=== PATIENT | male | born 1965 | race Caucasian/White ===

== ENCOUNTER 2017-01-21 07:43 | Day surgery (SDC) | payer BC ==
[~2017-01-21 07:43] MED LIST: ALPRAZolam 0.25 MG TAB PO PRN; ASPIRIN 325 MG TAB PO STA; NITROGLYCERIN SL TABS 0.4 MG TAB SUBLINGUAL PRN; SODIUM CHLORIDE 0.9% 1,000 ML in EMPTY BAG 1 BAG IV ONE
[2017-01-21] MEDS ORDERED: SODIUM CHLORIDE 0.9% 1,000 ML IV ONE (08:07)
[2017-01-21] MEDS ORDERED: VERAPAMIL 2.5 MG/ML 2 ML AMP ONE (09:19)
[2017-01-21] MEDS ORDERED: LIDOCAINE 2% INJ 20 MG/ML (20 ML MDV) ONE (09:20)
[2017-01-21] MEDS ORDERED: fentaNYL (PF) 50 MCG/ML 2 ML AMP ONE (09:20)
[2017-01-21] MEDS ORDERED: MIDAZOLAM 2 MG/2 ML VIAL ONE (09:20)
[2017-01-21] MEDS ORDERED: HEPARIN SODIUM 1,000 UN/ML (10ML VL) ONE (09:20)
[2017-01-21] MEDS: fentaNYL (PF) 50 MCG/ML 2 ML AMP IV ONE ×2 (09:30→10:03)
[2017-01-21] MEDS: MIDAZOLAM 2 MG/2 ML VIAL IV ONE ×2 (09:30→09:34)
[2017-01-21] MEDS ORDERED: LIDOCAINE 2% INJ 20 MG/ML SQ ONE (09:34)
[2017-01-21] MEDS ORDERED: VERAPAMIL SYRINGE (5 MG/10 ML) INTRAARTER ONE ×2 (09:39→10:25)
[2017-01-21] MEDS ORDERED: HEPARIN SODIUM 1,000 UN/ML (10ML VL) IV ONE (09:39)
[2017-01-21] MEDS ORDERED: CLOPIDOGREL 75 MG TAB ONE (10:00)
[2017-01-21] MEDS ORDERED: CLOPIDOGREL 75 MG TAB PO ONE (10:03)
[2017-01-21] MEDS ORDERED: BIVALIRUDIN BOLUS 250 MG/50 ML IV ONE (10:03)
[2017-01-21] MEDS ORDERED: BIVALIRUDIN 250 MG in SODIUM CHLORIDE 0.9% 50 ML IV ONE (10:04)
[2017-01-21] MEDS ORDERED: NITROGLYCERIN 1000MCG/10ML SYRINGE INTRACORON ONE (10:06)
--- NOTE | 2017-01-21 10:13 | P.PCN ---
Date of Procedure: 01/21/17 Preoperative Diagnosis: Positive stress test and chest pain suggestive of angina Postoperative Diagnosis: Diffuse coronary disease with significant lesions in the mid and distal RCA Description of Procedure: HISTORY: This is a 51-year-old gentleman with strong family history of ischemic heart disease who has been experiencing intermittent chest pains. Patient was evaluated by stress cardiolite study which showed ischemic changes in the inferoseptal and also apical lateral segments. Of the changes were felt to be secondary to motion artifact. However given his family history, patient is advised to have a cardiac catheterization for definitive diagnosis. CONSENT:I have discussed the risks, benefits and alternative therapies for the above-mentioned procedure and for both sedation/analgesia as well as necessary blood product administration, if indicated, as they pertain to this patient. The patient has indicated understanding and acceptance of the risks and procedures discussed. PROCEDURE: Patient was brought to the lab in a fasting state. Patient was given some IV sedation. The right wrist area is infiltrated with lidocaine and right radial artery was entered using Seldinger technique. A 6-Luxembourgish catheter was left in place and selective coronary arteriography and left ventriculography was performed. Patient tolerated the procedure well. She went on to have stent placement of the RCA by Dr. Small Conscious Sedation: Versed :2mg Fentanyl :50 g Duration : 20 minutes HEMODYNAMICS: aortic pressure is about 126/88. Left ventricle end-diastolic pressure is about 15. There was no gradient across the aortic valve SELECTIVE CORONARY ARTERIOGRAPHY: LEFT MAIN: This is of normal length and patent. THE LEFT ANTERIOR DESCENDING CORONARY ARTERY: This is of good caliber vessel reaching the apex. There is mild intimal plaque without any significant focal lesion. THE LEFT CIRCUMFLEX AND IS CORONARY ARTERY: This is a small caliber nondominant vessel with mild disease in the midportion. THE RIGHT CORONARY ARTERY:This is a good caliber vessel and dominant in distribution. It gives rise to PDA and PLV branches. The mid RCA has about 70% lesion. The proximal and mid RCA is ectatic. There is 70-80% lesion in the distal RCA. LEFT VENTRICULOGRAPHY: This was performed in 30 right anterior oblique projection. This revealed normal-sized cardiac silhouette with good systolic function. FINAL IMPRESSION: significant lesion involving the mid and distal RCA. Mild intimal disease involving the LAD and the circumflex PLAN: stent placement of the 2 lesions in the RCA. This is being done by Dr. Small PROGNOSIS: fair
[2017-01-21] MEDS ORDERED: NITROGLYCERIN SL TABS 0.4 MG TAB SUBLINGUAL PRN (10:32)
[2017-01-21] MEDS ORDERED: ATROPINE SULFATE 0.1 MG/ML 10ML SYRINGE IV PRN (10:32)
[2017-01-21] MEDS ORDERED: ZOLPIDEM 5 MG TAB PO PRN (10:32)
[2017-01-21] MEDS ORDERED: RX INFO: IV CONTRAST WAS GIVEN 1 EACH MISC MISCELLANE PRN (10:32)
[2017-01-21] MEDS ORDERED: MAG HYDROX/AL HYDROX/SIMETH 30 ML CUP PO PRN (10:32)
[2017-01-21] MEDS ORDERED: IOHEXOL 350 MG/ML 125ML BOTTLE INJ ONE ×2 (10:34)
[2017-01-21] MEDS ORDERED: SODIUM CHLORIDE 0.9% 1,000 ML IV SCH (10:45)
[2017-01-21 11:10] VITALS: BMI 24.9
[2017-01-21] MEDS: VARENICLINE 0.5 MG TAB PO SCH (13:51)
[2017-01-21] MEDS: METOPROLOL TARTRATE 25 MG TAB PO SCH (20:19)
[2017-01-21] MEDS ORDERED: ATORVASTATIN 80 MG TAB PO SCH (21:00)
[2017-01-22 06:23] LABS: Basophils % (A) 0 %; CH 32.1; CHCM 33.9; Eosinophils # (A) 0.2 k/uL (0-0.7); Eosinophils % (A) 2 %; HCT 50.9 % (39.0-53.0); HDW 2.83; HGB 16.7 gm/dL (13.0-17.5); Luc # (Auto) 0.18; Luc % (Auto) 2; Lymphocytes # (A) 2.1 k/uL (1.0-4.8); Lymphocytes % (A) 21 %; MCH 31.2 pg (25.0-35.0); MCHC 32.8 g/dL (31.0-37.0); MCV 95.2 fL (80.0-100.0); Monocytes # (A) 0.5 k/uL (0-1.0); Monocytes % (A) 5 %; Neutrophils # (A) 7.3 k/uL (1.3-7.7); Neutrophils % (A) 71 %; RBC 5.34 m/uL (4.30-5.90); RDW 13.6 % (11.5-15.5); WBC 10.3 k/uL (3.8-10.6); WBC (Perox) 9.69
[2017-01-22 06:46] LABS: Anion Gap 5 mmol/L; Blood Urea Nitrogen 13 mg/dL (9-20); Calcium 9.4 mg/dL (8.4-10.2); Carbon Dioxide 29 mmol/L (22-30); Chloride 107 mmol/L (98-107); Glucose 95 mg/dL (74-99); Non-African American GFR(MDRD) >60 (>60 ml/min/1.73 sqM); Potassium 4.8 mmol/L (3.5-5.1); Sodium 141 mmol/L (137-145)
--- NOTE | 2017-01-22 08:40 | AN ---
ANGIOGRAPHY REPORT DATE OF SERVICE: 01/21/2017 PERFORMING PHYSICIAN: Morro Feliciano MD, Unloader Operator. PROCEDURE PERFORMED: 1. Successful stenting of the distal RCA using 2.75 x 18 mm Xience KSENIA which was post- dilated using 2.75 mm balloon with good angiographic results. 2. Successful stenting of the mid RCA using 3.5 x 15 mm Xience KSENIA which was post- dilated using 4 mm balloon with good angiographic results. INDICATION: This is a pleasant 51-year-old gentleman who sees Dr. Solo as an outpatient who was experiencing chest discomfort and underwent myocardial perfusion imaging which revealed ischemia. He underwent a heart catheterization by Dr. Solo and was found to have severe disease involving the distal and mid RCA. APPROACH: Right radial artery. COMPLICATION: None. LEVEL OF SEDATION: Moderate with sedation length of 30 minutes. PROCEDURE DESCRIPTION: After diagnostic heart catheterization was performed by Dr. Solo and after reviewing the angiogram, we decided to pursue with intervention on the RCA. Anticoagulation was initiated using Angiomax. Subsequently, I took JR3.5 guide and the RCA was engaged. A whisper wire was used to wire the right coronary artery. Subsequently, I did direct stenting of the lesion in the distal portion using 2.5 x 18 mm Xience KSENIA where the stent was positioned under fluoroscopy guidance and deployed under 12 atmospheres for 20 seconds. For the mid RCA, I took a 3.5 x 15 mm Xience KSENIA where the stent again was positioned under fluoroscopy guidance and deployed under 12 atmospheres for 20 seconds. I post-dilated the mid RCA stent using 4 mm balloon and the distal RCA stent using 3.75 mm balloon. The following angiogram showed excellent angiographic results without complication and without dissection. POSTPROCEDURE MANAGEMENT: 1. Dual anti-platelet therapy. 2. Follow up with the patient. MMODL / IJN: [id number] /
[2017-01-22] MEDS: VARENICLINE 0.5 MG TAB PO SCH (08:42)
[2017-01-22] MEDS: METOPROLOL TARTRATE 25 MG TAB PO SCH (08:42)
[2017-01-22] MEDS ORDERED: CHOLECALCIFEROL 1,000 UNIT TAB PO SCH (09:00)
[2017-01-22] MEDS ORDERED: CYANOCOBALAMIN 500 MCG TAB PO SCH (09:00)
[2017-01-22] MEDS ORDERED: MULTIVITAMINS, THERA 1 EACH TAB PO SCH (09:00)
[2017-01-22] MEDS ORDERED: ASPIRIN 325 MG TAB PO SCH (09:00)
[2017-01-22] MEDS ORDERED: FAMOTIDINE 20 MG TAB PO SCH (10:00)
[2017-01-22] MEDS ORDERED: CLOPIDOGREL 75 MG TAB PO SCH (10:33)
[2017-01-22 10:52] VITALS: BP 132/83; PULSE 66; RESP 18; TEMP 97
--- NOTE | 2017-01-22 11:54 | P.PN ---
Subjective Progress Note Date: 01/22/17 Principal diagnosis: RCA stent Discharge note This is a pleasant 51-year-old gentleman with strong family history of premature coronary artery disease who had been experiencing symptoms of intermittent chest discomfort. He underwent a cardiac catheterization by Dr. Solo which revealed a significant lesion involving the mid and distal RCA. Subsequently patient underwent angioplasty and stenting of the right coronary artery. He was seen and examined this morning, denies any chest pain or difficulty in breathing. We did stop the patient's Protonix post procedure because he is on Plavix, he did complain of some mild epigastric discomfort throughout the night much improved this morning, and we started him on Pepcid. We also initiated Chantix for smoking cessation. Blood pressure 132/80 with a heart rate in the 60s. BUN 13, creatinine 0.9, potassium 4.8. Objective - Vital Signs Vital signs: Vital Signs Temp 97.0 F L 01/22/17 08:00 Pulse 66 01/22/17 08:00 Resp 18 01/22/17 08:00 BP 132/83 01/22/17 08:00 Pulse Ox 93 L 01/22/17 08:00 Intake & Output 01/21/17 01/22/17 01/22/17 18:59 06:59 18:59 Intake Total 347.5 236 Output Total 0 Balance 347.5 236 Weight 78.8 kg 78.2 kg Intake: IV 127.5 Oral 220 236 Output: Urine 0 Other: Voiding Method Toilet Toilet # Voids 1 - Exam PHYSICAL EXAMINATION: HEENT: Head is atraumatic, normocephalic. Pupils equal, round. Neck is supple. There is no elevated jugular venous pressure. HEART EXAMINATION: Heart S1, S2 normal. No murmur or gallop heard. CHEST EXAMINATION: Lungs are clear to auscultation and precussion. No chest wall tenderness is noted on palpation or with deep breathing. ABDOMEN: Soft, nontender. Bowel sounds are heard. No organomegaly noted. EXTREMITIES: 2+ peripheral pulses with no evidence of peripheral edema and no calf tenderness noted. Right radial site clean and dry, good distal pulse. NEUROLOGIC patient is awake, alert and oriented -3. . - Labs CBC & Chem 7: 01/22/17 05:52 01/22/17 05:52 Assessment and Plan Plan: Assessment and plan #1 RCA stent #2 nicotine dependence #3 strong family history of premature coronary artery disease Plan Patient may be discharged home today. A follow-up appointment will be made with Dr. Solo in the office post discharge. Patient will be discharged home on aspirin 325 mg daily, Lipitor 80 mg daily, Plavix 75 mg daily, Pepcid 20 mg daily, metoprolol tartrate 25 mg one tablet by mouth twice a day, Chantix as directed. Sublingual nitroglycerin as needed for chest pain. Patient has been educated regarding his medications and provided prescriptions for all of the above medications. DNP note has been reviewed, I agree with a documented findings and plan of care. Patient was seen and examined.
== END 2017-01-22 12:31 | disposition home or self-care (01) ==
LOC: CATHCVL 07:43 → 6SEL 10:25 → CATHCVL 01-22 12:31
PROVIDERS: ATTEND Internal Medicine Cardiovascular Disease
DX: I25.118 Atherosclerotic heart disease of native coronary artery with other forms of angina pectoris (principal); F17.210 Nicotine dependence, cigarettes, uncomplicated; Z82.49 Family history of ischemic heart disease and other diseases of the circulatory system; Z79.899 Other long term (current) drug therapy
CPT/HCPCS: 93458; 80048; 85025; C9600; C1769 ×2; C1725 ×2; C1894 ×2; C1887; C1874; J2001; J2250; J3010; J1644; J0583; Q9967

== ENCOUNTER 2018-05-06 11:11 | Emergency (ER) | payer BC ==
[2018-05-06 11:20] VITALS: TEMP 97.9
[2018-05-06] MEDS ORDERED: ASPIRIN 81 MG PO STA (11:51)
--- NOTE | 2018-05-06 11:55 | ED ---
General Adult HPI - General Chief complaint: Chest Pain Stated complaint: chest pain/tight chest Time Seen by Provider: 05/06/18 11:24 Source: patient Mode of arrival: wheelchair Limitations: no limitations - History of Present Illness Initial comments: Dictation was produced using [employer] dictation software. please excuse any grammatical, word or spelling errors. Chief Complaint: 52-year-old male past medical history coronary artery disease status post multiple stents presents with chest pressure with radiation to the shoulder. History of Present Illness: 52-year-old male presents with chest pressure with radiation to the shoulder. Patient states that his symptoms started today lasted for couple hours. He states that his chest tightness improved spontaneously without any intervention. Patient reports that his symptoms are different from when he was diagnosed with coronary artery disease and received stents. Patient does have an outpatient zookeeper who scheduled a cardiac echo and carotid ultrasound and chemical stress tests scheduled for May 19 after he was seen in outpatient zookeeper office for syncope patient feels well currently without any complaints. Denies any diaphoresis or nausea associated with the symptoms. The ROS documented in this emergency department record has been reviewed and confirmed by me. Those systems with pertinent positive or negative responses have been documented in the HPI. All other systems are other negative and/or noncontributory. PHYSICAL EXAM: General Impression: Alert and oriented x3, not in acute distress HEENT: Normocephalic atraumatic, extra-ocular movements intact, pupils equal and reactive to light bilaterally, mucous membranes moist. Cardiovascular: Heart regular rate and rhythm, S1&S2 audible, no murmurs, rubs or gallops Chest: Lungs clear to auscultation bilaterally, no rhonchi, no wheeze, no rales Abdomen: Bowel sounds present, abdomen soft, non-tender, non-distended, no organomegaly Musculoskeletal: Pulses present and equal in all extremities, no peripheral edema Motor: Power 5/5 bilaterally, no focal deficits noted Neurological: CN II-XII grossly intact, no focal motor or sensory deficits noted Skin: Intact with no visualized rashes Psych: Normal affect and mood ED course: 52-year-old male with chief complaint of chest pressure with radiation to the right shoulder. States that his episodes lasted for couple hours and resolved on its own. Vital signs upon arrival are within acceptable limits. Laboratory evaluation obtained. Labs unremarkable. D-dimer negative. 2 sets of cardiac troponins negative. Chest x-ray unremarkable. Patient was observed in emergency department without any further symptoms. Patient feels warm to go home. Patient told that he should return to emergency Department with any worsening symptoms. Patient told to follow up with zookeeper as instructed this week. EKG interpretation: Ventricular rate 66, normal sinus rhythm,. Interval 16, QS 86, QTC 425. No NE prolongation, no QTC prolongation, no ST or T-wave changes noted. Overall, this EKG is unremarkable - Related Data Home Medications Medication Instructions Recorded Confirmed Cholecalciferol [Vitamin D3] 5,000 unit PO DAILY 01/17/17 05/06/18 Cyanocobalamin (Vitamin B-12) 1,000 mcg PO DAILY 01/17/17 05/06/18 [Vitamin B-12] Multivitamin [Men's Multi-Vitamin] 1 tab PO DAILY 01/17/17 05/06/18 Metoprolol Tartrate [Lopressor] 25 mg PO DAILY 05/06/18 05/06/18 Omeprazole 20 mg PO DAILY 05/06/18 05/06/18 Previous Rx's Medication Instructions Recorded Aspirin 325 mg PO DAILY #30 tab 01/22/17 Atorvastatin [Lipitor] 80 mg PO HS #30 tab 01/22/17 Nitroglycerin Sl Tabs [Nitrostat] 0.4 mg SUBLINGUAL Q5M PRN #25 tab 01/22/17 Allergies Allergy/AdvReac Type Severity Reaction Status Date / Time No Known Allergies Allergy Verified 05/06/18 11:49 Review of Systems ROS Statement: Those systems with pertinent positive or pertinent negative responses have been documented in the HPI. ROS Other: All systems not noted in ROS Statement are negative. Past Medical History Past Medical History: Coronary Artery Disease (CAD), GERD/Reflux Additional Past Medical History / Comment(s): recent stress test History of Any Multi-Drug Resistant Organisms: None Reported Past Surgical History: Heart Catheterization With Stent, Orthopedic Surgery Additional Past Surgical History / Comment(s): bunionectomy, colonoscopy Past Anesthesia/Blood Transfusion Reactions: No Reported Reaction Date of Last Stent Placement:: 01/21/2017 Past Psychological History: No Psychological Hx Reported Smoking Status: Current every day smoker Past Alcohol Use History: Occasional Past Drug Use History: None Reported - Past Family History Mother Family Medical History: COPD Father Family Medical History: AICD/Pacemaker, Coronary Artery Disease (CAD) General Exam Limitations: no limitations Course Vital Signs 05/06/18 05/06/18 05/06/18 11:17 11:37 12:00 Temperature 97.9 F Pulse Rate 75 68 67 Respiratory 18 22 Rate Blood Pressure 140/91 138/94 O2 Sat by Pulse 100 96 Oximetry 05/06/18 05/06/18 05/06/18 12:30 13:00 13:30 Temperature Pulse Rate 63 60 Respiratory Rate Blood Pressure 125/92 133/88 O2 Sat by Pulse 96 96 Oximetry 05/06/18 05/06/18 05/06/18 14:00 14:30 15:00 Temperature Pulse Rate 63 71 64 Respiratory Rate Blood Pressure 120/80 143/84 131/96 O2 Sat by Pulse 95 96 95 Oximetry Medical Decision Making - Lab Data Result diagrams: 05/06/18 11:40 05/06/18 11:40 Lab Results 05/06/18 05/06/18 05/06/18 Range/Units 11:40 11:40 11:40 WBC 8.5 (3.8-10.6) k/uL RBC 5.11 (4.30-5.90) m/uL Hgb 16.2 (13.0-17.5) gm/dL Hct 48.4 (39.0-53.0) % MCV 94.6 (80.0-100.0) fL MCH 31.6 (25.0-35.0) pg MCHC 33.4 (31.0-37.0) g/dL RDW 13.8 (11.5-15.5) % Plt Count 228 (150-450) k/uL Neutrophils % 63 % Lymphocytes % 28 % Monocytes % 6 % Eosinophils % 2 % Basophils % 0 % Neutrophils # 5.3 (1.3-7.7) k/uL Lymphocytes # 2.4 (1.0-4.8) k/uL Monocytes # 0.5 (0-1.0) k/uL Eosinophils # 0.2 (0-0.7) k/uL Basophils # 0.0 (0-0.2) k/uL PT (9.0-12.0) sec INR (<1.2) APTT (22.0-30.0) sec D-Dimer (<0.60) mg/L FEU Sodium 139 (137-145) mmol/L Potassium 4.4 (3.5-5.1) mmol/L Chloride 107 (98-107) mmol/L Carbon Dioxide 24 (22-30) mmol/L Anion Gap 8 mmol/L BUN 14 (9-20) mg/dL Creatinine 0.72 (0.66-1.25) mg/dL Est GFR (CKD-EPI)AfAm >90 (>60 ml/min/1.73 sqM) Est GFR (CKD-EPI)NonAf >90 (>60 ml/min/1.73 sqM) Glucose 93 (74-99) mg/dL Calcium 9.5 (8.4-10.2) mg/dL Magnesium 2.1 (1.6-2.3) mg/dL Total Bilirubin 0.9 (0.2-1.3) mg/dL AST 29 (17-59) U/L ALT 31 (21-72) U/L Alkaline Phosphatase 98 (38-126) U/L Total Creatine Kinase 94 (55-170) U/L CK-MB (CK-2) 0.8 (0.0-2.4) ng/mL CK-MB (CK-2) Rel Index 0.9 Troponin I <0.012 (0.000-0.034) ng/mL NT-Pro-B Natriuret Pep pg/mL Total Protein 6.9 (6.3-8.2) g/dL Albumin 4.3 (3.5-5.0) g/dL Lipase 50 (23-300) U/L 05/06/18 05/06/18 05/06/18 Range/Units 11:40 11:40 14:50 WBC (3.8-10.6) k/uL RBC (4.30-5.90) m/uL Hgb (13.0-17.5) gm/dL Hct (39.0-53.0) % MCV (80.0-100.0) fL MCH (25.0-35.0) pg MCHC (31.0-37.0) g/dL RDW (11.5-15.5) % Plt Count (150-450) k/uL Neutrophils % % Lymphocytes % % Monocytes % % Eosinophils % % Basophils % % Neutrophils # (1.3-7.7) k/uL Lymphocytes # (1.0-4.8) k/uL Monocytes # (0-1.0) k/uL Eosinophils # (0-0.7) k/uL Basophils # (0-0.2) k/uL PT 11.3 (9.0-12.0) sec INR 1.1 (<1.2) APTT 26.6 (22.0-30.0) sec D-Dimer 0.22 (<0.60) mg/L FEU Sodium (137-145) mmol/L Potassium (3.5-5.1) mmol/L Chloride (98-107) mmol/L Carbon Dioxide (22-30) mmol/L Anion Gap mmol/L BUN (9-20) mg/dL Creatinine (0.66-1.25) mg/dL Est GFR (CKD-EPI)AfAm (>60 ml/min/1.73 sqM) Est GFR (CKD-EPI)NonAf (>60 ml/min/1.73 sqM) Glucose (74-99) mg/dL Calcium (8.4-10.2) mg/dL Magnesium (1.6-2.3) mg/dL Total Bilirubin (0.2-1.3) mg/dL AST (17-59) U/L ALT (21-72) U/L Alkaline Phosphatase (38-126) U/L Total Creatine Kinase (55-170) U/L CK-MB (CK-2) (0.0-2.4) ng/mL CK-MB (CK-2) Rel Index Troponin I <0.012 (0.000-0.034) ng/mL NT-Pro-B Natriuret Pep 69 pg/mL Total Protein (6.3-8.2) g/dL Albumin (3.5-5.0) g/dL Lipase (23-300) U/L Disposition Clinical Impression: Chest pain Disposition: HOME SELF-CARE Condition: Good Instructions (If sedation given, give patient instructions): Chest Pain (ED) Is patient prescribed a controlled substance at d/c from ED?: No Referrals: Jessica Rollins MD [Primary Care Provider] - 1-2 days Time of Disposition: 15:58
--- NOTE | 2018-05-06 12:47 | XR ---
EXAMINATION TYPE: XR chest 2V DATE OF EXAM: 05/06/2018 COMPARISON: NONE HISTORY: Chest pain and tightness TECHNIQUE: Frontal and lateral views of the chest are obtained. FINDINGS: There is no focal air space opacity, pleural effusion, or pneumothorax seen. Pulmonary hyp erinflation is seen with flattening of the diaphragms relating to underlying COPD. The cardiac silhou ette size is within normal limits. The osseous structures are intact. IMPRESSION: No acute cardiopulmonary process. Radiographic sequela of COPD.
[2018-05-06 12:53] LABS: Basophils % (A) 0 %; Eosinophils # (A) 0.2 k/uL (0-0.7); Eosinophils % (A) 2 %; HCT 48.4 % (39.0-53.0); HGB 16.2 gm/dL (13.0-17.5); Lymphocytes # (A) 2.4 k/uL (1.0-4.8); Lymphocytes % (A) 28 %; MCH 31.6 pg (25.0-35.0); MCHC 33.4 g/dL (31.0-37.0); MCV 94.6 fL (80.0-100.0); Mean Platelet Volume 7.4; Monocytes # (A) 0.5 k/uL (0-1.0); Monocytes % (A) 6 %; Neutrophils # (A) 5.3 k/uL (1.3-7.7); Neutrophils % (A) 63 %; Platelet Count 228 k/uL (150-450); RBC 5.11 m/uL (4.30-5.90); RDW 13.8 % (11.5-15.5); WBC 8.5 k/uL (3.8-10.6)
[2018-05-06 13:02] LABS: Chloride 107 mmol/L (98-107); Potassium 4.4 mmol/L (3.5-5.1); Sodium 139 mmol/L (137-145)
[2018-05-06 13:04] LABS: ALT 31 U/L (21-72); AST 29 U/L (17-59); Albumin 4.3 g/dL (3.5-5.0); Alkaline Phosphatase 98 U/L (38-126); Anion Gap 8 mmol/L; Blood Urea Nitrogen 14 mg/dL (9-20); Calcium 9.5 mg/dL (8.4-10.2); Carbon Dioxide 24 mmol/L (22-30); Glucose 93 mg/dL (74-99); Lipase 50 U/L (23-300); Magnesium 2.1 mg/dL (1.6-2.3); Total Bilirubin 0.9 mg/dL (0.2-1.3); Total Protein 6.9 g/dL (6.3-8.2)
[2018-05-06 13:19] LABS: D-Dimer 0.22 mg/L FEU (<0.60); INR 1.1 (<1.2); Partial Thromboplastin Time 26.6 sec (22.0-30.0); Prothrombin Time 11.3 sec (9.0-12.0)
[2018-05-06 13:26] LABS: Creatine Kinase 94 U/L (55-170)
[2018-05-06 13:37] LABS: Creatine Kinase MB 0.8 ng/mL (0.0-2.4); Troponin I <0.012 ng/mL (0.000-0.034)
[2018-05-06 15:02] VITALS: RESP 22
[2018-05-06 16:32] VITALS: BP 123/86; PULSE 58
== END 2018-05-06 16:32 | disposition home or self-care (01) ==
LOC: EC 11:11
DX: R07.89 Other chest pain (principal); M25.519 Pain in unspecified shoulder; I25.10 Atherosclerotic heart disease of native coronary artery without angina pectoris; K21.9 Gastro-esophageal reflux disease without esophagitis; F17.200 Nicotine dependence, unspecified, uncomplicated; Z79.899 Other long term (current) drug therapy; Z95.5 Presence of coronary angioplasty implant and graft; Z82.49 Family history of ischemic heart disease and other diseases of the circulatory system
CPT/HCPCS: 36415; 71046; 80053; 82550; 82553; 83690; 83735; 83880; 84484; 85025; 85379; 85610; 85730; 93005; 99285

== ENCOUNTER 2019-04-02 09:33 | Emergency (ER) | payer BC ==
[2019-04-02] MEDS ORDERED: SODIUM CHLORIDE 0.9% 500 ML 500 ML IV STA (09:56)
[2019-04-02] MEDS ORDERED: SODIUM CHLORIDE 0.9% 1,000 ML IV STA (09:56)
[2019-04-02] MEDS ORDERED: KETOROLAC 30 MG/ML 1 ML VIAL IVP STA (09:56)
--- NOTE | 2019-04-02 10:31 | ED ---
Abdominal Pain HPI - General Chief Complaint: Abdominal Pain Stated Complaint: diverticulosis Time Seen by Provider: 04/02/19 09:45 Source: patient, RN notes reviewed Mode of arrival: ambulatory Limitations: no limitations - History of Present Illness Initial Comments: 53-year-old male presents emergency Department chief complaint left lower quadrant abdominal pain. Patient does have a history of diverticulitis. States the pain has been present for last 1 week with no improvement. He usually states he has bouts of diverticular in which she usually 6 to clear liquid diet and has improvement. He did admit part is he felt constipated recently loose stools no melena hematochezia. Hasn't slight nausea no vomiting states he just does not feel well. No prior abdominal surgeries. Patient has been evaluated by Dr. Jaeger in the past for his diverticulitis. - Related Data Home Medications Medication Instructions Recorded Confirmed Cholecalciferol [Vitamin D3 (25 5,000 unit PO DAILY 01/17/17 05/06/18 Mcg = 1000 Iu)] Cyanocobalamin (Vitamin B-12) 1,000 mcg PO DAILY 01/17/17 05/06/18 [Vitamin B-12] Multivitamin [Men's Multi-Vitamin] 1 tab PO DAILY 01/17/17 05/06/18 Metoprolol Tartrate [Lopressor] 25 mg PO DAILY 05/06/18 05/06/18 Omeprazole 20 mg PO DAILY 05/06/18 05/06/18 Previous Rx's Medication Instructions Recorded Aspirin 325 mg PO DAILY #30 tab 01/22/17 Atorvastatin [Lipitor] 80 mg PO HS #30 tab 01/22/17 Nitroglycerin Sl Tabs [Nitrostat] 0.4 mg SUBLINGUAL Q5M PRN #25 tab 01/22/17 Amoxicillin/Potassium Clav 1 tab PO Q12HR #20 tab 04/02/19 [Augmentin 875-125 Tablet] Allergies Allergy/AdvReac Type Severity Reaction Status Date / Time No Known Allergies Allergy Verified 04/02/19 09:43 Review of Systems ROS Statement: Those systems with pertinent positive or pertinent negative responses have been documented in the HPI. ROS Other: All systems not noted in ROS Statement are negative. Past Medical History Past Medical History: Coronary Artery Disease (CAD), GERD/Reflux Additional Past Medical History / Comment(s): recent stress test History of Any Multi-Drug Resistant Organisms: None Reported Past Surgical History: Heart Catheterization With Stent, Orthopedic Surgery Additional Past Surgical History / Comment(s): bunionectomy, colonoscopy Past Anesthesia/Blood Transfusion Reactions: No Reported Reaction Date of Last Stent Placement:: 01/21/2017 Past Psychological History: No Psychological Hx Reported Smoking Status: Current every day smoker Past Alcohol Use History: Occasional Past Drug Use History: None Reported - Past Family History Mother Family Medical History: COPD Father Family Medical History: AICD/Pacemaker, Coronary Artery Disease (CAD) General Exam Limitations: no limitations General appearance: alert, in no apparent distress Head exam: Present: atraumatic, normocephalic, normal inspection Eye exam: Present: normal appearance, PERRL, EOMI. Absent: scleral icterus, conjunctival injection, periorbital swelling ENT exam: Present: normal exam, normal oropharynx, mucous membranes moist Neck exam: Present: normal inspection, full ROM. Absent: tenderness, men ingismus, lymphadenopathy Respiratory exam: Present: normal lung sounds bilaterally. Absent: respiratory distress, wheezes, rales, rhonchi, stridor Cardiovascular Exam: Present: regular rate, normal rhythm, normal heart sounds. Absent: systolic murmur, diastolic murmur, rubs, gallop, clicks GI/Abdominal exam: Present: soft, tenderness (Left lower quadrant tenderness), normal bowel sounds. Absent: distended, guarding, rebound, rigid Back exam: Absent: CVA tenderness (R), CVA tenderness (L) Neurological exam: Present: alert, oriented X3 Skin exam: Present: warm, dry, intact, normal color. Absent: rash Course Vital Signs 04/02/19 09:41 Temperature 98.0 F Pulse Rate 77 Respiratory 18 Rate Blood Pressure 144/86 O2 Sat by Pulse 98 Oximetry Medical Decision Making - Medical Decision Making Patient presented for left lower quadrant pain labs are unremarkable CT shows evidence of moderate diverticulosis no definite diverticulitis though patient is symptomatic will be to the antibiotics at this time. Patient will follow-up with Dr. ruiz his surgeon return for any worsening symptoms. - Lab Data Result diagrams: 04/02/19 10:06 04/02/19 10:06 Lab Results 04/02/19 04/02/19 04/02/19 Range/Units 10:06 10:06 10:06 WBC 9.8 (3.8-10.6) k/uL RBC 5.25 (4.30-5.90) m/uL Hgb 17.4 (13.0-17.5) gm/dL Hct 48.8 (39.0-53.0) % MCV 92.9 (80.0-100.0) fL MCH 33.1 (25.0-35.0) pg MCHC 35.6 (31.0-37.0) g/dL RDW 13.3 (11.5-15.5) % Plt Count 251 (150-450) k/uL Neutrophils % 68 % Lymphocytes % 22 % Monocytes % 5 % Eosinophils % 2 % Basophils % 1 % Neutrophils # 6.6 (1.3-7.7) k/uL Lymphocytes # 2.2 (1.0-4.8) k/uL Monocytes # 0.5 (0-1.0) k/uL Eosinophils # 0.2 (0-0.7) k/uL Basophils # 0.1 (0-0.2) k/uL Sodium 140 (137-145) mmol/L Potassium 4.5 (3.5-5.1) mmol/L Chloride 108 H (98-107) mmol/L Carbon Dioxide 22 (22-30) mmol/L Anion Gap 10 mmol/L BUN 13 (9-20) mg/dL Creatinine 0.76 (0.66-1.25) mg/dL Est GFR (CKD-EPI)AfAm >90 (>60 ml/min/1.73 sqM) Est GFR (CKD-EPI)NonAf >90 (>60 ml/min/1.73 sqM) Glucose 86 (74-99) mg/dL Plasma Lactic Acid Tone 0.9 (0.7-2.0) mmol/L Calcium 9.5 (8.4-10.2) mg/dL Total Bilirubin 1.1 (0.2-1.3) mg/dL AST 49 (17-59) U/L ALT 46 (4-49) U/L Alkaline Phosphatase 90 (38-126) U/L Total Protein 7.4 (6.3-8.2) g/dL Albumin 4.5 (3.5-5.0) g/dL Amylase 44 (30-110) U/L Lipase 58 (23-300) U/L Urine Color Urine Appearance (Clear) Urine pH (5.0-8.0) Ur Specific [place] (1.001-1.035) Urine Protein (Negative) Urine Glucose (UA) (Negative) Urine Ketones (Negative) Urine Blood (Negative) Urine Nitrite (Negative) Urine Bilirubin (Negative) Urine Urobilinogen (<2.0) mg/dL Ur Leukocyte Esterase (Negative) 04/02/19 Range/Units 10:06 WBC (3.8-10.6) k/uL RBC (4.30-5.90) m/uL Hgb (13.0-17.5) gm/dL Hct (39.0-53.0) % MCV (80.0-100.0) fL MCH (25.0-35.0) pg MCHC (31.0-37.0) g/dL RDW (11.5-15.5) % Plt Count (150-450) k/uL Neutrophils % % Lymphocytes % % Monocytes % % Eosinophils % % Basophils % % Neutrophils # (1.3-7.7) k/uL Lymphocytes # (1.0-4.8) k/uL Monocytes # (0-1.0) k/uL Eosinophils # (0-0.7) k/uL Basophils # (0-0.2) k/uL Sodium (137-145) mmol/L Potassium (3.5-5.1) mmol/L Chloride (98-107) mmol/L Carbon Dioxide (22-30) mmol/L Anion Gap mmol/L BUN (9-20) mg/dL Creatinine (0.66-1.25) mg/dL Est GFR (CKD-EPI)AfAm (>60 ml/min/1.73 sqM) Est GFR (CKD-EPI)NonAf (>60 ml/min/1.73 sqM) Glucose (74-99) mg/dL Plasma Lactic Acid Tone (0.7-2.0) mmol/L Calcium (8.4-10.2) mg/dL Total Bilirubin (0.2-1.3) mg/dL AST (17-59) U/L ALT (4-49) U/L Alkaline Phosphatase (38-126) U/L Total Protein (6.3-8.2) g/dL Albumin (3.5-5.0) g/dL Amylase (30-110) U/L Lipase (23-300) U/L Urine Color Yellow Urine Appearance Clear (Clear) Urine pH 7.0 (5.0-8.0) Ur Specific [place] 1.006 (1.001-1.035) Urine Protein Negative (Negative) Urine Glucose (UA) Negative (Negative) Urine Ketones Negative (Negative) Urine Blood Negative (Negative) Urine Nitrite Negative (Negative) Urine Bilirubin Negative (Negative) Urine Urobilinogen <2.0 (<2.0) mg/dL Ur Leukocyte Esterase Negative (Negative) Disposition Clinical Impression: Diverticulitis Disposition: HOME SELF-CARE Condition: Stable Instructions (If sedation given, give patient instructions): Diverticulitis Diet (ED), Diverticulitis (ED) Additional Instructions: Please return to the Emergency Department if symptoms worsen or any other concerns. Prescriptions: Amoxicillin/Potassium Clav [Augmentin 875-125 Tablet] 1 tab PO Q12HR #20 tab Is patient prescribed a controlled substance at d/c from ED?: No Referrals: Jessica Rollins MD [Primary Care Provider] - 1-2 days Ezequiel Jaeger MD [Medical Doctor] - 1-2 days Time of Disposition: 11:27
[2019-04-02 10:43] LABS: Basophils # (A) 0.1 k/uL (0-0.2); Basophils % (A) 1 %; Eosinophils # (A) 0.2 k/uL (0-0.7); Eosinophils % (A) 2 %; HCT 48.8 % (39.0-53.0); HGB 17.4 gm/dL (13.0-17.5); Lymphocytes # (A) 2.2 k/uL (1.0-4.8); Lymphocytes % (A) 22 %; MCH 33.1 pg (25.0-35.0); MCHC 35.6 g/dL (31.0-37.0); MCV 92.9 fL (80.0-100.0); Mean Platelet Volume 7.9; Monocytes # (A) 0.5 k/uL (0-1.0); Monocytes % (A) 5 %; Neutrophils # (A) 6.6 k/uL (1.3-7.7); Neutrophils % (A) 68 %; Platelet Count 251 k/uL (150-450); RBC 5.25 m/uL (4.30-5.90); RDW 13.3 % (11.5-15.5); WBC 9.8 k/uL (3.8-10.6)
[2019-04-02 10:48] LABS: ALT 46 U/L (4-49); AST 49 U/L (17-59); African American GFR (CKD) >90 (>60 ml/min/1.73 sqM); Albumin 4.5 g/dL (3.5-5.0); Alkaline Phosphatase 90 U/L (38-126); Amylase 44 U/L (30-110); Anion Gap 10 mmol/L; Blood Urea Nitrogen 13 mg/dL (9-20); Calcium 9.5 mg/dL (8.4-10.2); Carbon Dioxide 22 mmol/L (22-30); Chloride 108 mmol/L (98-107); Glucose 86 mg/dL (74-99); Non-African American GFR(CKD) >90 (>60 ml/min/1.73 sqM); Potassium 4.5 mmol/L (3.5-5.1); Sodium 140 mmol/L (137-145); Total Bilirubin 1.1 mg/dL (0.2-1.3); Total Protein 7.4 g/dL (6.3-8.2)
--- NOTE | 2019-04-02 10:54 | CT ---
EXAMINATION TYPE: CT abdomen pelvis w con DATE OF EXAM: 04/02/2019 COMPARISON: 03/29/2010 HISTORY: 53-year-old male LLQ pain TECHNIQUE: Contiguous axial scanning of the abdomen and pelvis following administration of 100 ml Iso rocky 300 IV contrast. Delayed images through the kidneys and coronal/sagittal reconstructions perform ed. CT DLP: 1180.4 mGycm Automated exposure control for dose reduction was used. FINDINGS: Heart normal size without pericardial effusion. Coronary artery calcifications are noted. Lung bases clear without pleural effusion. Low attenuation of the hepatic parenchyma suggesting underlying fatty infiltration. Portal venous sys tem is patent. No biliary ductal dilatation. Gallbladder, adrenal glands, right kidney, spleen, and pancreas appear within normal limits. 1.4 cm exophytic cortical cyst posterior left kidney shows some increase in size from 2010. Moderate atherosclerotic calcifications and plaque within the infrarenal abdominal aorta and iliac ar teries. Fusiform ectasia measures up to 2.6 cm within the infrarenal abdominal aorta, new from 2010. No dilated small bowel, free fluid, or free air. Normal appendix. Generalized colonic diverticulosis. No focal pericolonic inflammatory changes identi fied. Mild trabeculated appearance to the bladder. There may be slight perivesicular fat stranding. Prostat e gland mildly enlarged at 4.2 cm wide. Patulous inguinal canals. No abnormal fluid collection in the pelvis or pelvic lymphadenopathy. Bones: Mild degenerative changes of the hips. Mild degenerative changes inferior left SI joint. No os seous destructive process. IMPRESSION: 1. GENERALIZED COLONIC DIVERTICULOSIS. NO EVIDENCE FOR ACUTE DIVERTICULITIS. 2. MILD TRABECULATED APPEARANCE TO THE BLADDER WITH POSSIBLE SLIGHT FAT STRANDING. CORRELATE TO EXCLU DE CYSTITIS. 3. HEPATIC STEATOSIS. MODERATE ATHEROSCLEROTIC CHANGES ABDOMINAL AORTA AND ILIAC ARTERIES WITH NEW FU SIFORM ECTASIA UP TO 2.6 CM ALONG THE INFRARENAL SEGMENT.
[2019-04-02 11:01] LABS: Appearance,Urine Clear (Clear); Bilirubin,Urine Negative (Negative); Blood,Urine Negative (Negative); Color,Urine Yellow; Glucose,Urine (UA) Negative (Negative); Ketones,Urine Negative (Negative); Leukocyte Esterase,Urine Negative (Negative); Nitrite,Urine Negative (Negative); Protein,Urine Negative (Negative); Specific Gravity,Urine 1.006 (1.001-1.035); Urobilinogen,Urine <2.0 mg/dL (<2.0)
[2019-04-02] MEDS ORDERED: cefTRIAXone IN SWFI 1,000 MG/10 ML SYRINGE IVP STA (11:27)
[2019-04-02] MEDS ORDERED: ONDANSETRON 4 MG/2 ML VIAL IVP STA (11:31)
[2019-04-02] MEDS ORDERED: Acetaminophen-Codeine 300-30mg TAB PO STA (11:31)
[2019-04-02] MEDS ORDERED: HYDROmorphone 0.5 MG/0.5 ML SYRINGE IVP STA (11:31)
[2019-04-02] MEDS ORDERED: ACET/COD 300 MG/30 MG STARTER PACK 6 TAB BTL PO STA (11:47)
[2019-04-02 11:52] VITALS: BP 148/82; PULSE 79; RESP 19; TEMP 97.6
== END 2019-04-02 11:52 | disposition home or self-care (01) ==
LOC: EC 09:33
DX: K57.32 Diverticulitis of large intestine without perforation or abscess without bleeding (principal); I25.10 Atherosclerotic heart disease of native coronary artery without angina pectoris; K21.9 Gastro-esophageal reflux disease without esophagitis; F17.200 Nicotine dependence, unspecified, uncomplicated; Z79.899 Other long term (current) drug therapy; Z95.5 Presence of coronary angioplasty implant and graft
CPT/HCPCS: 36415; 80053; 82150; 83605; 83690; 85025; 81003; 87040; 74177; 99284; 96374; 96375 ×3; 96361 ×2; J2405; J0696; J1885; J1170; Q9967

== ENCOUNTER → 2020-01-28 | Outpatient (CLI) | payer BC | END | disposition home or self-care (01) | LOC: LABWHC1 11:34 | PROVIDERS: ATTEND Family Medicine | DX: R05 Cough (principal); R50.9 Fever, unspecified | CPT/HCPCS: U0003; C9803 ==

== ENCOUNTER → 2020-03-03 | Outpatient (CLI) | payer BC ==
[2020-03-03 08:28] LABS: Basophils % (A) 0 %; Eosinophils # (A) 0.3 k/uL (0-0.7); Eosinophils % (A) 2 %; HCT 49.8 % (39.0-53.0); HGB 17.1 gm/dL (13.0-17.5); Lymphocytes # (A) 2.5 k/uL (1.0-4.8); Lymphocytes % (A) 20 %; MCH 33.1 pg (25.0-35.0); MCHC 34.3 g/dL (31.0-37.0); MCV 96.5 fL (80.0-100.0); Mean Platelet Volume 7.7; Monocytes # (A) 0.6 k/uL (0-1.0); Monocytes % (A) 5 %; Neutrophils # (A) 8.7 k/uL (1.3-7.7); Neutrophils % (A) 71 %; Platelet Count 228 k/uL (150-450); RBC 5.16 m/uL (4.30-5.90); RDW 13.3 % (11.5-15.5); WBC 12.2 k/uL (3.8-10.6)
== END | disposition home or self-care (01) ==
LOC: LABWHC1 07:01
PROVIDERS: ATTEND Family Medicine
DX: D72.829 Elevated white blood cell count, unspecified (principal)
CPT/HCPCS: 36415; 85025

== ENCOUNTER → 2020-04-06 | Outpatient (CLI) | payer BC ==
[2020-04-06 07:43] LABS: Basophils % (A) 0 %; Eosinophils # (A) 0.2 k/uL (0-0.7); Eosinophils % (A) 2 %; HCT 51.5 % (39.0-53.0); Lymphocytes # (A) 2.4 k/uL (1.0-4.8); Lymphocytes % (A) 20 %; MCH 31.3 pg (25.0-35.0); MCHC 32.9 g/dL (31.0-37.0); MCV 95.1 fL (80.0-100.0); Mean Platelet Volume 7.3; Monocytes # (A) 0.6 k/uL (0-1.0); Monocytes % (A) 5 %; Neutrophils # (A) 8.6 k/uL (1.3-7.7); Neutrophils % (A) 71 %; Platelet Count 228 k/uL (150-450); RBC 5.42 m/uL (4.30-5.90); RDW 13.8 % (11.5-15.5); WBC 12.1 k/uL (3.8-10.6)
== END | disposition home or self-care (01) ==
LOC: LABWHC1 06:59
PROVIDERS: ATTEND Family Medicine
DX: R79.89 Other specified abnormal findings of blood chemistry (principal)
CPT/HCPCS: 36415; 85025

== ENCOUNTER 2020-05-17 09:45 | Day surgery (SDC) | payer BC ==
[2020-04-29 09:15] VITALS: BMI 25.8
[~2020-05-17 09:45] MED LIST changes: -ALPRAZolam 0.25 MG TAB PO PRN; -ASPIRIN 325 MG TAB PO STA; +LACTATED RINGERS 1,000 ML IV SCH; +LIDOCAINE 1% (10MG/ML) FOR IV START INTRADERMA PRN; -NITROGLYCERIN SL TABS 0.4 MG TAB SUBLINGUAL PRN; -SODIUM CHLORIDE 0.9% 1,000 ML in EMPTY BAG 1 BAG IV ONE
[2020-05-17] MEDS ORDERED: PROPOFOL 10 MG/ML 20 ML VIAL IV ONE (10:24)
[2020-05-17 10:25] VITALS: RESP 16; TEMP 97.2
--- NOTE | 2020-05-17 10:32 | P.GSHP ---
History of Present Illness H&P Date: 05/17/20 Chief Complaint: Change in bowel habits 54-year-old male here today for colonoscopy. Patient with history of previous diverticulitis. Last colonoscopy 2010. Diverticulosis seen. No rectal bleeding or melena. Treated with antibiotics for diverticulitis 1-2 months ago. Past Medical History Past Medical History: Coronary Artery Disease (CAD), COPD, GERD/Reflux, Hyperlipidemia, Hypertension Additional Past Medical History / Comment(s): hx. diverticulitis, rescheduled this procedure because had cold & cough sx. which are now much better History of Any Multi-Drug Resistant Organisms: None Reported Past Surgical History: Heart Catheterization With Stent, Orthopedic Surgery Additional Past Surgical History / Comment(s): bunionectomy, colonoscopy Past Anesthesia/Blood Transfusion Reactions: No Reported Reaction Date of Last Stent Placement:: 01/21/2017 Past Psychological History: No Psychological Hx Reported Smoking Status: Current every day smoker Past Alcohol Use History: Occasional Additional Past Alcohol Use History / Comment(s): 1ppd since late teens Past Drug Use History: None Reported - Past Family History Mother Family Medical History: COPD Father Family Medical History: AICD/Pacemaker, Coronary Artery Disease (CAD) Medications and Allergies Home Medications Medication Instructions Recorded Confirmed Type Cholecalciferol [Vitamin D3 (25 5,000 unit PO DAILY 01/17/17 05/17/20 History Mcg = 1000 Iu)] Cyanocobalamin (Vitamin B-12) 1,000 mcg PO DAILY 01/17/17 05/17/20 History [Vitamin B-12] Multivitamin [Men's Multi-Vitamin] 1 tab PO DAILY 01/17/17 05/17/20 History Aspirin 325 mg PO DAILY #30 tab 01/22/17 05/17/20 Rx Nitroglycerin Sl Tabs [Nitrostat] 0.4 mg SUBLINGUAL Q5M PRN #25 tab 01/22/17 05/17/20 Rx Metoprolol Tartrate [Lopressor] 12.5 mg PO HS 05/06/18 05/17/20 History Omeprazole 20 mg PO DAILY 05/06/18 05/17/20 History Atorvastatin [Lipitor] 40 mg PO HS 04/29/20 05/17/20 History Allergies Allergy/AdvReac Type Severity Reaction Status Date / Time No Known Allergies Allergy Verified 05/17/20 10:10 Surgical - Exam Vital Signs Temp Pulse Resp BP Pulse Ox 97.2 F L 88 16 129/82 95 05/17/20 10:20 05/17/20 10:20 05/17/20 10:20 05/17/20 10:20 05/17/20 10:20 Physical exam: General: Well-developed, well-nourished HEENT: Normocephalic, sclerae nonicteric Abdomen: Nontender, nondistended Extremities: No edema Neuro: Alert and oriented Assessment and Plan (1) Change in bowel habits Narrative/Plan: Will proceed with upper and lower endoscopy Current Visit: Yes Status: Acute Code(s): R19.4 - CHANGE IN BOWEL HABIT SNOMED Code(s): 208409408
--- NOTE | 2020-05-17 10:46 | P.PCN ---
Date of Procedure: 05/17/20 Procedure(s) Performed: PREOPERATIVE DIAGNOSIS: Change in bowel habits POSTOPERATIVE DIAGNOSIS: Diverticulosis PROCEDURE: Colonoscopy ANESTHESIA: MAC SURGEON: Ezequiel Jaeger M.D. SPECIMENS: None ENDOSCOPIC PROCEDURE: The patient was placed on the endoscopy table in the left decubitus position. The Olympus colonoscope was inserted into the anus and passed under direct visualization to the base of the cecum. The appendiceal orifice was visualized. From that point the scope was slowly withdrawn inspe cting all surfaces carefully. There were no neoplastic inflammatory or polypoid lesions throughout the cecum, ascending, transverse, descending, sigmoid and rectum. There was mild left-sided diverticulosis noted without inflammatory changes or stricture formation. Digital rectal examination was normal. The patient was taken to the recovery room in stable condition per anesthesia guidelines. RECOMMENDATIONS: Resume diet.
[2020-05-17 11:09] VITALS: BP 122/79; PULSE 68
== END 2020-05-17 11:25 | disposition home or self-care (01) ==
LOC: ORWHC2ENDO 09:45
PROVIDERS: ATTEND Surgery
DX: K57.30 Diverticulosis of large intestine without perforation or abscess without bleeding (principal); I25.10 Atherosclerotic heart disease of native coronary artery without angina pectoris; I10 Essential (primary) hypertension; J44.9 Chronic obstructive pulmonary disease, unspecified; K21.9 Gastro-esophageal reflux disease without esophagitis; E78.5 Hyperlipidemia, unspecified; Z87.19 Personal history of other diseases of the digestive system; Z95.5 Presence of coronary angioplasty implant and graft; Z98.890 Other specified postprocedural states; F17.210 Nicotine dependence, cigarettes, uncomplicated; Z82.5 Family history of asthma and other chronic lower respiratory diseases; Z82.49 Family history of ischemic heart disease and other diseases of the circulatory system; Z79.899 Other long term (current) drug therapy; Z79.82 Long term (current) use of aspirin
CPT/HCPCS: 45378; J2704

== ENCOUNTER 2021-11-13 11:20 | Emergency (ER) | payer BC ==
--- NOTE | 2021-11-13 11:36 | ED ---
General Adult HPI - General Chief complaint: Abdominal Pain Stated complaint: diverticulitis Time Seen by Provider: 11/13/21 11:27 Source: patient Mode of arrival: ambulatory Limitations: no limitations - History of Present Illness Initial comments: Dictation was produced using [employer] dictation software. please excuse any grammatical, word or spelling errors. Chief Complaint: 56-year-old male presents emergency department for 1 week of lower abdominal pain History of Present Illness: 56-year-old male he has extensive history of f requent episodes of diverticulitis. He states that for the last 10 days he's been having lower abdominal pain. He was seen by his primary care doctor who prescribed him antibiotics. He's been] for 7 days. His like his symptoms are not improving prompting him to come to the emergency department. States that the pain is dull achy and located to the lower abdomen. He states it radiates to his back. Denies any fever, chills or night sweats. He has had some nausea but no vomiting. The ROS documented in this emergency department record has been reviewed and confirmed by me. Those systems with pertinent positive or negative responses have been documented in the HPI. All other systems are other negative and/or noncontributory. PHYSICAL EXAM: General Impression: Alert and oriented x3, not in acute distress HEENT: Normocephalic atraumatic, extra-ocular movements intact, pupils equal and reactive to light bilaterally, mucous membranes moist. Cardiovascular: Heart regular rate and rhythm Chest: Able to complete full sentences, no retractions, no tachypnea Abdomen: abdomen soft, palpatory tenderness to the suprapubic area right and left, non-distended, no organomegaly Musculoskeletal: Pulses present and equal in all extremities, no peripheral edema Motor: no focal deficits noted Neurological: CN II-XII grossly intact, no focal motor or sensory deficits noted Skin: Intact with no visualized rashes Psych: Normal affect and mood ED course:56-year-old male with extensive history of diverticulitis presents emergency department for persistent lower abdominal pain. Vital signs upon arrival are within acceptable limits. Laboratory evaluation obtained showing no abnormalities. Urinalysis negative. Abdominal labs negative. Computed tomography scan of the abdomen and pelvis with contrast shows small fat containing right inguinal hernia. No other abnormalities noted. exam shows no abnormalities of the testicles or penis. Patient reevaluated bedside at 12:45 PM found to be stable medical condition. Patient we discharge. Advised follow-up with primary care doctor. - Related Data Home Medications Medication Instructions Recorded Confirmed Cholecalciferol [Vitamin D3 (25 5,000 unit PO DAILY 01/17/17 05/17/20 Mcg = 1000 Iu)] Cyanocobalamin (Vitamin B-12) 1,000 mcg PO DAILY 01/17/17 05/17/20 [Vitamin B-12] Multivitamin [Men's Multi-Vitamin] 1 tab PO DAILY 01/17/17 05/17/20 Metoprolol Tartrate [Lopressor] 12.5 mg PO HS 05/06/18 05/17/20 Omeprazole 20 mg PO DAILY 05/06/18 05/17/20 Atorvastatin [Lipitor] 40 mg PO HS 04/29/20 05/17/20 Previous Rx's Medication Instructions Recorded Aspirin 325 mg PO DAILY #30 tab 01/22/17 Nitroglycerin Sl Tabs [Nitrostat] 0.4 mg SUBLINGUAL Q5M PRN #25 tab 01/22/17 Allergies Allergy/AdvReac Type Severity Reaction Status Date / Time No Known Allergies Allergy Verified 11/13/21 11:25 Review of Systems ROS Statement: Those systems with pertinent positive or pertinent negative responses have been documented in the HPI. ROS Other: All systems not noted in ROS Statement are negative. Past Medical History Past Medical History: Coronary Artery Disease (CAD), COPD, GERD/Reflux, Hyperlipidemia, Hypertension Additional Past Medical History / Comment(s): hx. diverticulitis, rescheduled this procedure because had cold & cough sx. which are now much better History of Any Multi-Drug Resistant Organisms: None Reported Past Surgical History: Heart Catheterization With Stent, Orthopedic Surgery Additional Past Surgical History / Comment(s): bunionectomy, colonoscopy Past Anesthesia/Blood Transfusion Reactions: No Reported Reaction Date of Last Stent Placement:: 01/21/2017 Past Psychological History: No Psychological Hx Reported Smoking Status: Current every day smoker Past Alcohol Use History: Occasional Past Drug Use History: None Reported - Past Family History Mother Family Medical History: COPD Father Family Medical History: AICD/Pacemaker, Coronary Artery Disease (CAD) General Exam Limitations: no limitations Course Vital Signs 11/13/21 11/13/21 11/13/21 11:22 11:34 12:06 Temperature 97.7 F Pulse Rate 69 65 86 Respiratory 18 20 16 Rate Blood Pressure 157/101 134/96 130/80 O2 Sat by Pulse 98 95 98 Oximetry Medical Decision Making - Lab Data Result diagrams: 11/13/21 11:36 11/13/21 11:36 Lab Results 11/13/21 11/13/21 11/13/21 Range/Units 11:36 11:36 11:36 WBC 9.3 (3.8-10.6) k/uL RBC 5.54 (4.30-5.90) m/uL Hgb 17.5 (13.0-17.5) gm/dL Hct 52.2 (39.0-53.0) % MCV 94.3 (80.0-100.0) fL MCH 31.5 (25.0-35.0) pg MCHC 33.5 (31.0-37.0) g/dL RDW 13.2 (11.5-15.5) % Plt Count 245 (150-450) k/uL MPV 7.4 Neutrophils % 67 % Lymphocytes % 23 % Monocytes % 5 % Eosinophils % 2 % Basophils % 1 % Neutrophils # 6.2 (1.3-7.7) k/uL Lymphocytes # 2.2 (1.0-4.8) k/uL Monocytes # 0.5 (0-1.0) k/uL Eosinophils # 0.2 (0-0.7) k/uL Basophils # 0.1 (0-0.2) k/uL Sodium 137 (137-145) mmol/L Potassium 4.3 (3.5-5.1) mmol/L Chloride 102 (98-107) mmol/L Carbon Dioxide 24 (22-30) mmol/L Anion Gap 11 mmol/L BUN 15 (9-20) mg/dL Creatinine 0.86 (0.66-1.25) mg/dL Est GFR (CKD-EPI)AfAm >90 (>60 ml/min/1.73 sqM) Est GFR (CKD-EPI)NonAf >90 (>60 ml/min/1.73 sqM) Glucose 111 H (74-99) mg/dL Calcium 9.3 (8.4-10.2) mg/dL Total Bilirubin 0.8 (0.2-1.3) mg/dL AST 36 (17-59) U/L ALT 26 (4-49) U/L Alkaline Phosphatase 79 (38-126) U/L Total Protein 6.7 (6.3-8.2) g/dL Albumin 4.4 (3.5-5.0) g/dL Lipase 50 (23-300) U/L Urine Color Yellow Urine Appearance Clear (Clear) Urine pH 5.5 (5.0-8.0) Ur Specific [place] 1.010 (1.001-1.035) Urine Protein Negative (Negative) Urine Glucose (UA) Negative (Negative) Urine Ketones Negative (Negative) Urine Blood Negative (Negative) Urine Nitrite Negative (Negative) Urine Bilirubin Negative (Negative) Urine Urobilinogen <2.0 (<2.0) mg/dL Ur Leukocyte Esterase Negative (Negative) Disposition Clinical Impression: Abdominal pain Disposition: HOME SELF-CARE Condition: Good Instructions (If sedation given, give patient instructions): Abdominal Pain (ED) Additional Instructions: There was an incidental finding of a small fat-containing groin hernia seen on her computed tomography scan. Please follow-up with her primary care doctor regarding this. Is patient prescribed a controlled substance at d/c from ED?: No Referrals: Jessica Rollins MD [Primary Care Provider] - 1-2 days Time of Disposition: 12:43
[2021-11-13 11:55] LABS: Appearance,Urine Clear (Clear); Basophils # (A) 0.1 k/uL (0-0.2); Basophils % (A) 1 %; Bilirubin,Urine Negative (Negative); Blood,Urine Negative (Negative); Color,Urine Yellow; Eosinophils # (A) 0.2 k/uL (0-0.7); Eosinophils % (A) 2 %; Glucose,Urine (UA) Negative (Negative); HCT 52.2 % (39.0-53.0); HGB 17.5 gm/dL (13.0-17.5); Ketones,Urine Negative (Negative); Leukocyte Esterase,Urine Negative (Negative); Lymphocytes # (A) 2.2 k/uL (1.0-4.8); Lymphocytes % (A) 23 %; MCH 31.5 pg (25.0-35.0); MCHC 33.5 g/dL (31.0-37.0); MCV 94.3 fL (80.0-100.0); Mean Platelet Volume 7.4; Monocytes # (A) 0.5 k/uL (0-1.0); Monocytes % (A) 5 %; Neutrophils # (A) 6.2 k/uL (1.3-7.7); Neutrophils % (A) 67 %; Nitrite,Urine Negative (Negative); PH, Urine 5.5 (5.0-8.0); Platelet Count 245 k/uL (150-450); Protein,Urine Negative (Negative); RBC 5.54 m/uL (4.30-5.90); RDW 13.2 % (11.5-15.5); Urobilinogen,Urine <2.0 mg/dL (<2.0); WBC 9.3 k/uL (3.8-10.6)
[2021-11-13 12:05] LABS: ALT 26 U/L (4-49); AST 36 U/L (17-59); African American GFR (CKD) >90 (>60 ml/min/1.73 sqM); Albumin 4.4 g/dL (3.5-5.0); Alkaline Phosphatase 79 U/L (38-126); Anion Gap 11 mmol/L; Blood Urea Nitrogen 15 mg/dL (9-20); Calcium 9.3 mg/dL (8.4-10.2); Carbon Dioxide 24 mmol/L (22-30); Chloride 102 mmol/L (98-107); Glucose 111 mg/dL (74-99); Lipase 50 U/L (23-300); Non-African American GFR(CKD) >90 (>60 ml/min/1.73 sqM); Potassium 4.3 mmol/L (3.5-5.1); Sodium 137 mmol/L (137-145); Total Bilirubin 0.8 mg/dL (0.2-1.3); Total Protein 6.7 g/dL (6.3-8.2)
[2021-11-13 12:07] VITALS: RESP 16
--- NOTE | 2021-11-13 12:20 | CT ---
EXAMINATION TYPE: CT abdomen pelvis w con DATE OF EXAM: 11/13/2021 COMPARISON: 04/02/2019 HISTORY: Stomach pains and persistent suprapubic pain CT DLP: 943.4 mGycm CONTRAST: CT scan of the abdomen and pelvis is performed without Oral Contrast and with IV Contrast, patient in jected with 100 mL of Isovue 300. FINDINGS: LUNG BASES-: No visible nodule. No infiltrate. LIVER/GB: No calcified gallstones. No space occupying hepatic lesion. Biliary tree is of normal ca liber. PANCREAS: No inflammation. No distinct mass. SPLEEN: No splenic enlargement. No lesion seen. ADRENALS: No nodule. No thickening. KIDNEYS/BLADDER: No hydronephrosis. No nephrolithiasis. No distinct solid renal mass. 1 cm cyst m [place] left kidney. Urinary bladder grossly unremarkable. BOWEL: Normal appendix. Normal bowel caliber. No inflammation. GENITAL ORGANS: No gross abnormality. LYMPH NODES: No greater than 1cm abdominal or pelvic lymph nodes are appreciated. AORTA: No significant abnormality. OSSEOUS STRUCTURES: No significant abnormality is seen. OTHER: Small fat-containing right inguinal hernia. IMPRESSION: 1. Small fat-containing right inguinal hernia. Otherwise unremarkable study.
[2021-11-13 13:09] VITALS: BP 135/60; PULSE 68; TEMP 98
== END 2021-11-13 13:09 | disposition home or self-care (01) ==
LOC: EC 11:20
DX: R10.30 Lower abdominal pain, unspecified (principal); I25.10 Atherosclerotic heart disease of native coronary artery without angina pectoris; J44.9 Chronic obstructive pulmonary disease, unspecified; K21.9 Gastro-esophageal reflux disease without esophagitis; E78.5 Hyperlipidemia, unspecified; I10 Essential (primary) hypertension; F17.200 Nicotine dependence, unspecified, uncomplicated; Z79.82 Long term (current) use of aspirin; Z79.899 Other long term (current) drug therapy
CPT/HCPCS: 36415; 80053; 83690; 85025; 81003; 74177; 99284; Q9967